=== PATIENT | female | born 2000 | race Caucasian/White ===

== ENCOUNTER 2025-06-09 11:30 | Outpatient (REF) | payer OTHER, SELFPAY ==
[2025-06-09 14:09] LABS: Hematocrit 38.7 % (37.0-47.0); Hemoglobin 12.8 g/dl (12.0-16.0); Mean Corpuscular HGB Conc 33.1 g/dl (31.0-35.0); Mean Corpuscular Hemoglobin 30.2 pg (27.0-33.0); Mean Corpuscular Volume 91.3 fL (80.0-98.0); NRBC Abs Auto 0.000 X10*3/uL (0.0-0.012); NRBC Pct Auto 0.0 /100WBC (0.0-0.2); Platelet Count 335 X10*3/uL (160-400); Red Blood Count 4.24 X10*6/uL (4.20-5.50); White Blood Count 8.6 X10*3/uL (4.8-10.8)
[2025-06-09 14:57] LABS: Erythrocyte Sedimentation Rate 12 MM/HR (0-20)
[2025-06-09 15:00] LABS: Alanine Aminotransferase 30 U/L (0-31); Albumin Level 4.2 g/dL (3.5-5.0); Alkaline Phosphatase 37 U/L (39-117); Anion Gap 11 (12-20); Aspartate Amino Transferase 31 U/L (5-31); Blood Urea Nitrogen 10 mg/dL (9-16); Calcium 8.8 mg/dL (8.4-10.2); Carbon Dioxide 25 mmol/L (22-29); Chloride 109 mmol/L (96-108); Cholesterol 141 mg/dL (<200); Estimated Glomerular Filt Rate > 60; HDL Cholesterol 48 mg/dL (>40); Potassium 3.5 mmol/L (3.3-5.1); Sodium 141 mmol/L (135-145); Total Protein 7.0 g/dL (6.5-8.0); Triglycerides 250 mg/dL (<150)
[2025-06-10 04:28] LABS: HIV Num 1 0.04 S/CO (0.00-0.99); ~HepC Num1 0.06 S/CO (0.00-0.79); ~Hepatitis C Antibody Nonreactive (Nonreactive)
[2025-06-10 20:24] LABS: Immunoglobulin A 229 mg/dL (47-310)
== END 2025-06-09 11:31 | disposition home or self-care (01) ==
LOC: HO.LAB 11:30
PROVIDERS: Visit Provider Internal Medicine
DX: R19.7 Diarrhea, unspecified (principal); Z13.1 Encounter for screening for diabetes mellitus; Z13.6 Encounter for screening for cardiovascular disorders
CPT/HCPCS: 36415; 80053; 80061; 82306; 82784; 83036; 84443; 85027; 85652; 86141; 86364; 86803; 87389

== ENCOUNTER 2025-06-09 11:30 | Outpatient (AMB) | payer OTHER, SELFPAY ==
[2025-06-09 11:53] VITALS: BP 100/60; PULSE 79; RESP 18; TEMP 36.4; O2SAT 99; BMI 25.9
--- NOTE | 2025-06-09 11:53 | MHC.PC.OV ---
Vital Signs 06/09/25 11:53 Height 5 ft 3 in Weight 146 lb 6 oz BMI 25.9 BP 100/60 Blood Pressure Location Lt brachial Position Sitting Respiration 18 Pulse 79 Pulse Source Pulse Oximeter Temp 97.5 F Temp Source Temporal Artery Scan Pulse Oximetry (%) 99 Oxygen Delivery Method Room Air Intake Visit Reasons: IT RISK ADVISOR // GI Issues, diarrhea, cramping Regulatory Affairs Director Required: No Accompanied by: Self / Same As Patient Allergies No Known Allergies Allergy (Verified 06/09/25 11:55) Medication List - Last Reconciled 06/09/25 by Jigar Torre MD No Known Home Meds Tobacco use date assessed: 06/09/25 Dental Screening Dental Screen Date: 06/09/25 Did you have a dental visit in the last 12 months?: Yes Did you have a dental problem in the last 6 months where you did not have access to dental care?: No Was dental information given to patient?: Patient has dentist HPI HPI Comments History of Present Illness Details The patient is a 24-year-old female with no known PMH presenting for a new patient visit with a chief complaint of chronic diarrhea. The diarrhea has been ongoing for at least a year, with no known precipitating event or changes in diet or location. The patient attempted to eliminate dairy, but did not notice a significant change in her symptoms, though she continues to take dairy pills when consuming dairy products. Associated symptoms include always feeling tired, brain fog, and occasional acid reflux. She denies any joint aches or rashes. She notes occasional episodes of hives, but the trigger is unknown. The patient receives control from her LEASING MANAGER. Her last Pap smear was in July and was normal. She has not had a primary care physician since she was 19 years old. [facility] Social History (Updated 06/09/25 @ 11:57 by Shani Gonzalez MA) Alcohol intake: current Patient Tobacco Use Status: Never used Tobacco e-Cigarette/Vaping Use: Currently Using Substance Use Type: Marijuana Current occupational status: employed Current occupation: Engineering Group Leader Cognitive needs: No Hearing needs: No Vision needs: No Questionnaire PHQ-9 Over the last 2 weeks, how often have you been bothered by any of the following problems? 1. Little interest or pleasure in doing things: several days 2. Feeling down, depressed, or hopeless: more than half the days 3. Trouble falling or staying asleep, or sleeping too much: not at all 4. Feeling tired or having little energy: nearly every day 5. Poor appetite or overeating: several days 6. Feeling bad about yourself - or that you are a failure or have let yourself or your family down: several days 7. Trouble concentrating on things, such as reading the newspaper or watching television: several days 8. Moving or speaking so slowly that other people could have noticed. Or the opposite - being so fidgety or restless that you have been moving around a lot more than usual: not at all 9. Thoughts that you would be better off or of hurting yourself in some way: not at all Total score: 9 Source: Developed by Drs. Adrián Johnson, Jessica Duggan, Osiel Edgar and colleagues, with an educational burton from [employer]. Thrive Questionnaire Date Thrive assessed: 06/02/25 I am a: Patient What is your living situation today?: I have a steady place to live Within the past 12 months, did the food you bought not last and you didn't have the money to get more?: Never true Within the past 12 months, did you worry whether your food would run out before you got money to buy more?: Never true Do you have trouble paying for medicines?: No Do you have trouble getting transportation to medical appointments?: No Do you have trouble paying your heating and electricity bill?: No Do you have trouble taking care of your child, family member or friend?: No Do you have trouble with day-to-day activities such as bathing, preparing meals, shopping, managing finances, etc.?: No Are you currently unemployed and looking for a job?: No Are you interested in more education?: Yes Please select the resources that you would like help with: None Currently or been in a relationship where the following occur: No concerns reported THRIVE Score: 0 AUDIT C Alcohol Use Questionnaire (AUDIT-C) 1. How often do you have a drink containing alcohol?: Monthly or less 2. How many drinks containing alcohol do you have on a typical day when you are drinking?: 3 or 4 3. How often do you have six or more drinks on one occasion?: Never Total Score: 2 CASSIDY-7 AMB Questionnaire CASSIDY-7 Date CASSIDY - 7 assessed: 06/09/25 Feeling nervous, anxious, or on edge: 2 = More than half the days Not being able to stop or control worryin = More than half the days Worrying too much about different things: 1 = Several days Trouble relaxin = Not at all Being so restless that it is hard to sit still: 0 = Not at all Becoming easily annoyed or irritable: 2 = More than half the days Feeling afraid as if something awful might happen: 1 = Several days Total CASSIDY-7 score (0-4 normal; 5-9 mild; 10-14 moderate; 15-21 severe): 8 Source: Developed by Drs. Adrián Johnson, Jessica Duggan, Osiel Edgar and colleagues, with an educational burton from [employer]. Review of Systems Const Details: As per HPI. Physical exam (Primary Care) Vital Signs: Last Vital Signs Temp 97.5 F 06/09/25 11:53 Pulse 79 06/09/25 11:53 Resp 18 06/09/25 11:53 BP 100/60 06/09/25 11:53 Pulse Ox 99 06/09/25 11:53 Oxygen Delivery Method Room Air 06/09/25 11:53 BMI result Body Mass Index 25.9 Tobacco/Smoking Status: Tobacco use Status Tobacco use date assessed 06/09/25 06/09/25 12:00 Patient Tobacco Use Status Never used Tobacco 06/09/25 12:00 e-Cigarette/Vaping Use Currently Using 06/09/25 12:00 PHQ-9: PHQ-9 Score PHQ-9: Total score 9 06/09/25 12:00 Thrive Assessment: Date of Thrive Assessment Date Thrive assessed 06/02/25 06/09/25 12:00 Currently or been in a relationship where the following occur: No concerns reported Const Other: Pertinent findings are in BOLD GENERAL APPEARANCE NAD, activity normal for age, well developed/ well nourished, no cyanosis, pallor, or diaphoresis. EYES lids/conjunctiva normal. EARS/NOSE/THROAT Mucous membranes moist, nares normal, lips/teeth normal uvula midline without oral pharyngeal erythema, exudate or swelling TMs normal bilaterally. No lymphangitis/lymphedema. HEAD/NECK normocephalic atraumatic, no facial trauma, neck is supple. RESPIRATORY respiratory effort normal, speaks in full sentences, no tripod position, no accessory muscle use. Lungs clear to auscultation without rhonchi, wheezes, rales CARDIAC Regular rate and rhythm, no edema. ABDOMINAL Soft, ND/NT. No evidence of fluid wave. No pulsatile masses on exam, rebound tenderness, Hernadez sign or pain over Mcburney's point. MUSCLES/EXTREMITIES No abnormal range of motion, no swelling. SKIN Warm, pink and dry. No rashes, dermatoses, petechiae or lesions. NEUROLOGICAL Speech is clear and appropriate. Normal level of consciousness. Gait and coordination are normal. 5/5 strength in all extremities. PSYCH Normal mood and affect. Judgement/competence is appropriate Coding Level of Care Code New Pt Level 4 (67622) New Pt Prev Care 18-39yr(95183 Diagnoses Diarrhea, unspecified type R19.7 Diarrhea type: unspecified type Healthcare maintenance Z00.00 Assessment & Plan Assessment & Plan (1) Diarrhea: Comment: Associated with fatigue, brain fog and abdominal pain. Code(s): R19.7 - Diarrhea, unspecified Category: Medical Qualifiers: Diarrhea type: unspecified type Qualified Code(s): R19.7 - Diarrhea, unspecified Plan: - The etiology of the patient's chronic diarrhea is unclear. - Differential diagnosis includes Celiac disease and food intolerances, such as to dairy, gluten, sugars, and red meat. - Plan includes initiating a trial of an elimination diet, starting with strict avoidance of dairy for one week, followed by subsequent trials of eliminating gluten, sugars, and red meat to assess for symptomatic improvement. - Initial lab workup will be ordered, including a complete blood count (CBC), celiac panel, inflammatory markers (ESR, CRP), and screening for Hepatitis C and HIV. - A referral will be placed to Gastroenterology for further evaluation and management, which may include stool testing. (2) Healthcare maintenance: Code(s): Z00.00 - Encounter for general adult medical examination without abnormal findings Category: Medical Plan: CBC, CMP, Lipid panel, A1C, TSH w T4, vit D. Ordered today. Shingles 2 doses when >50 yo. At 50. COVID: two doses. Completed. Tdap: Completed in 2021 - Next due in 2031. Pneumococcal: >50 yo. 18-49 with CKD, lung disease, weakened immune system, Heart disease, DM, cochlear implant. Completed. Flu vaccine: Completed. Colonoscopy: 45-75. At 45. AAA: 65 -75. Not indicated. Non smoker. CT lun - 80. Not indicated. Non smoker. HPV: Completed. Follows with gas fitter. HIV: Ordered. HBV: Ordered. HCV: Ordered. Dexa: Not indicated. Mammogram: Not indicated. Plan I discussed with the patient that her gastrointestinal symptoms are complex and that diet is often a primary factor. I recommended she try an elimination diet, starting with dairy for one week, and then subsequently gluten, sugar, and red meat, to see if her symptoms improve, noting that her subjective experience is often more accurate than tests. I have ordered blood work to investigate her symptoms, which includes a celiac panel, inflammatory markers, a CBC, and screenings for HIV and Hepatitis C. I will also place a referral to a adjunct professor of u.s. history for further evaluation. I advised her she can have the labs drawn today at the hospital but to wait until the afternoon to ensure I have placed all the relevant orders. We will plan for a follow-up visit in six months, but I advised her to schedule it sooner, in three months, if she has not yet been seen by the GI specialist. Orders: Orders Complete Blood Count no Diff Today R19.7 - Diarrhea, unspecified Comprehensive Met. Panel Today R19.7 - Diarrhea, unspecified Lipid Panel Today R19.7 - Diarrhea, unspecified HIV Ab/Ag Today R19.7 - Diarrhea, unspecified Celiac Disease Panel Today R19.7 - Diarrhea, unspecified Erythrocyte Sedimentation Rate Today R19.7 - Diarrhea, unspecified CRP High Sensitivity Today R19.7 - Diarrhea, unspecified Hemoglobin A1c Today R19.7 - Diarrhea, unspecified TSH reflex Free T4 Today R19.7 - Diarrhea, unspecified Vitamin D 25-OH Total Today R19.7 - Diarrhea, unspecified Hepatitis C Antibody Reflex Today R19.7 - Diarrhea, unspecified Referrals Gastroenterology Referral R19.7 - Diarrhea, unspecified
--- OUTSIDE RECORDS SUMMARY | 2025-06-09 13:37 | XMS_ITS | Clinical Summary ---
Author Organization [facility] [address] [facility] [address] Address [address] [place] [address] Phone Care Team Providers Care Cable Tender Name Role Phone Bertram Camp DO Primary Care Provider [phone] Allergies No known active allergies Medications desogestreL-ethinyl estradioL (Isibloom) 0.15-0.03 mg per tabletIndications:S urveillance for control, oral contraceptives Take 1 tablet by mouth 1 (one) time each day. 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 Overview (06/24/2024): 2 nevi on back; Derm referral placed Immunizations Immunization Administration Dates Next Due DTaP (Infanrix) 6wks to less than 7yo ,07/01/2002,06/11/2001,04/09,2000 NUkK-FMC-DUW (Pentacel) 2mo to less than 5yo 07/01/2002,06/11/2001,04/09/2001,10/04 HPV 9-valent (Gardisil) 9yo to less than 46yo 07/04/2017 HPV, Quadrivalent 05/08/2014 Hepatitis B Pediatric (Enger ix B; Recombivax HB) to less than 20 yo 08/13/2001,06/11/2001,2000 IPV Inactivated polio (Ipol) 6wks and older 07/01/2002,03/13/2002,04/09/2001,10/04 Influenza trivalent, 0.5mL, preservative free (Fluarix; FluLaval; Fluzone) ages 6mo and older (Afluria) 3 years and older 07/04/2017 MMR, measles mumps and rubel la Live (Priorix; M-M-R II) 12mo and older 03/13/2006,08/13/2001 Meningococcal MCV4P 07/04/2017,05/30/2012,2003 Pneumococcal conjugate 13 va lent (Prevnar 13, PCV13) 2mo and older 06/11/2001,04/09/2001,2000 Tdap Tetanus diptheria acell ular pertussis (Boostrix; Adacel) 7yo and older 10/28/2021,05/30/2012 Varicella live (Varivax) 12m o and older 05/30/2012,08/13/2001 Medical History Medical History Date Comments Patient denies medical problems DX:Patient denies medical problems Family History Medical History Relation Name Comments No Known Problems Brother 1 No Known Problems Father Cirrhosis Mother No Known Problems Sister 1 No Known Problems Sister 2 Relation Name Status Comments Brother 1 Alive Brother 2 Father Alive Maternal Grandfather Maternal Grandmother Mother Alive Paternal Grandfather Paternal Grandmother Alive Sister 1 Alive Sister 2 Alive Social History Tobacco Use Types Packs/Day Years Used Date Smoking Tobacco: Light Smoker Smokeless Tobacco: Never Comments:vapor Alcohol Use Standard Drinks/Week Comments Yes 0 (1 standard drink = 0.6 oz pur e alcohol) soc Housing Instability Answer Date Recorde d Are you worried that in the next 2 months you may not have stable housing? No 08/21/2024 Food Access & Nutrition Answer Date Rec orded Do you have access to a vari ety of food including fruits and vegetables? Yes 08/21/2024 Access to Healthcare Answer Date Record ed Within the last 3 months, ho w many times did you visit the emergency department for your medical care? 0 08/21/2024 Health Literacy Answer Date Recorded How often do you need to hav e someone help you when you read instructions, pamphlets, or other written material from your doctor or pharmacy? Never 08/21/2024 Caregiver: How often do you need to have someone help you when you read instructions, pamphlets, or other written material from your doctor or pharmacy? Not on file 08/21/2024 Financial Risk Answer Date Recorded How hard is it for you to pa y for the very basics like food, housing, medical care, and air conditioning / heating? Not very hard 08/21/2024 Transportation Answer Date Recorded Has the lack of transportati on kept you from meetings, work, or from getting things needed for daily living? No Has the lack of transportati on kept you from medical appointments or from getting medications? No 08/21/2024 Social Isolation Answer Date Recorded How often do you feel lonely or isolated from th ose around you? Often 08/21/2024 Food Risk Answer Date Recorded Within the past 12 months we worried whether our food would run out before we got money to buy more. Never true 08/21/2024 Within the past 12 months th e food we bought just didn't last and we didn't have money to get more. Never true 08/21/2024 Dependent Care Answer Date Recorded Do you need help finding or paying for care for your loved ones. For example, children's literature professor or elderly care for an older adult? No 08/21/2024 Education Answer Date Recorded Do you think completing more education or training, like finishing a GED, going to college, or learning a trade, would be helpful for you? N/A 08/21/2024 Employment and Income Answer Date Recor ded During the last four weeks, have you been actively looking for work? No 08/21/2024 Living Situation Answer Date Recorded What is your living situation? Unrecognized valu e 08/21/2024 Comments No Sex and Gender Information Value Date Recorded Sex Assigned at Not on file Legal Sex Female 4:04 PM EST Gender Identity Not on file Sexual Orientation Not on file Obstetrics History Para Term AB IAB SAB Ectopic Multiple Livin g Live Births 0 0 0 0 0 0 0 0 Last Filed Vital Signs Vital Sign Reading Time Taken Comments Blood Pressure 120/77 08/22/2024 1:45 PM EST Pulse 74 08/22/2024 1:45 PM EST Temperature - - Respiratory Rate 14 08/22/2024 1:45 PM EST Oxygen Saturation - - Inhaled Oxygen Concentration - - Weight 64.5 kg (142 lb 3.2 oz) 08/22/2024 1:45 P M EST Height 160 cm (5' 3 ) 08/07/2023 2:26 PM EST Body Mass Index 25.19 08/07/2023 2:26 PM EST Plan of Treatment Health Maintenance Due Date Last Done Comments Pneumococcal Vaccine: Pediatrics (0 to 5 Years) and At-Risk Patients (6 to 49 Years) (1 of 1 - PPSV23, PCV20, or PCV21) 2006 06/11/2001, 04/09/2001, 2000 Cholesterol Screening (Lipid Panel) 09/06/2023 09/06/2018 COVID-19 Vaccine ( season) 2025 12/06/2020, 11/14/2020 Influenza Vaccine (#1) 2025 05/29/2024, 2016 Social Influencers of Health Screening 08/21/2025 08/21/2024 Gonorrhea/Chlamydia Screening 08/22/2025 08/22/2024, 08/07/2023 Cervical Cancer Screening: Pap Smear 08/07/2026 08/07/2023, 08/07/2023, 08/07/2023 DTaP,Tdap,and Td Vaccines (8 - Td or Tdap) 10/29/2031 10/28/2021, 05/30/2012, 03/13/2006, Additional history exists RSV Immunization Adult Patients (1 - 1-dose 75+ series) 2075 HIB Vaccines Completed 07/01/2002, 05/30, 04/09/2001, Additional history exists IPV Vaccines Completed 07/01/2002, 09/2001, 03/13/2002, Additional history exists MMR Vaccines Completed 03/13/2006, 08/13/2001 Varicella Vaccines Completed 05/30/2012, 08/13/2001 HPV Vaccines Completed 07/04/2017, 05/08/2014 Meningococcal ACWY Vaccine Completed 07/04, 05/30/2012, 03/28/2004 HIV Screening Completed 09/06/2018 Hepatitis C Screening Completed 10/01/2019 Hepatitis B Vaccines Completed 08/06/2023, 07/04/2023, 08/13/2001, Additional history exists Depression Screening Completed 08/21/2024 Hepatitis A Vaccines Aged Out No long er eligible based on patient's age to complete this topic Meningococcal B Vaccine Aged Out No l onger eligible based on patient's age to complete this topic RSV Immunization Patients Under 20 months Aged Out No longer eligible based on patient's age to complete this topic Procedures Procedure Name Priority Date/Time Associated Diagnosis Comments CHLAMYDIA TRACHOMATIS AND NEISSERIA GONORRHOEAE PCR Routine 08/22/2024 2:42 PM EST Screen for STD (sexually transmitted disease) PAP SMEAR Routine 08/07/2023 HEPATITIS C SCREENING Routine 10/01/2019 HIV SCREENING Routine 09/06/2018 LIPID PANEL Routine 09/06/2018 from Last 3 Months or Most Recently Relevant to Health Maintenance Results * Chlamydia trachomatis and Neisseria gonorrhoeae molecular study (08/22/2024 2:42 PM EST) Neisseria gonorrhoeae PCR Negative Negative LAB MOLECULAR DIAGNOSTICS METHOD 08/23/2024 8:17 AM EST [facility] Chlamydia trachomatis PCR Negative Negative LAB MOLECULAR DIAGNOSTICS METHOD 08/23/2024 8:17 AM EST [facility] Swab Cervix uteri structure / Unknown Non-blood Collection / Unknown 08/22/2024 2:42 PM EST 08/22/2024 2:42 PM EST us Tj Rush CNM LAB MICROBIOLOGY - GENERAL ORD ERABLES Final Result [facility] [address] [place] [address], * Pap smear (08/07/2023) 08/07/2023 Narrative HISTORICAL TESTING LAB RESULTING AGENCY - 08/14/2023 9:56 AM EST [id number] THINPREP PAP, IMAGED: NEGATIVE FOR SQUAMOUS INTRAEPITHELIAL LESION AND MALIGNANCY . LAN MARY(ASCP) (CASE ELECTRONICALLY SIGNED 08 14 2023) ADEQUACY: SATISFACTORY ENDOCERVICAL/TRANSFORMATION ZONE COMPONENT ABSENT. SOURCE: THINPREP PAP HPV IF ASCUS, CERVICAL, IMAGED CLINICAL INFORMATION: HPV IF DIAGNOSIS OF ASCUS. [Z01.419] Tj [facility] LAB CYTOLOGY ORDERABLES Final Result HISTORICAL TESTING LAB RESULTING AGENCY * Hepatitis C Screening (10/01/2019) Hepatitis C Screening abstracted Historical Provider MD HEALTH MAINTENANCE Final Result * HIV Screening (09/06/2018) HIV Screening abstracted Historical Provider HEALTH MAINTENANCE Final Result * Lipid panel (09/06/2018) LDL/HDL Ratio 3 0 - 4 Triglycerides 70 0 - 150 mg/dL Cholesterol 183 0 - 200 mg/dL HDL 69 >=40 mg/dL LDL Cholesterol 100 0 - 100 mg/dL Blood Venous blood specimen / Unknown Historical Provider LAB BLOOD ORDERABLES Aniya l Result from Last 3 Months or Most Recently Relevant to Health Maintenance Insurance B RAMÓN Deshpande [id number] [facility] Care Teams Cable Tender Relationship Specialty Start Date End Date Bertram Camp DO PCP - General Internal Medicine 10/28/21
== END 2025-06-09 12:22 | disposition home or self-care (01) ==
LOC: HO.HMCH 11:31
PROVIDERS: PCP Internal Medicine; Visit Provider Internal Medicine
DX: R19.7 Diarrhea, unspecified (principal)